=== PATIENT | male | born 1975 | race Caucasian/White ===

== ENCOUNTER 2024-06-04 17:25 | Inpatient (IN) | payer OTHER ==
[2024-06-04 18:59] VITALS: BMI 34.9
[2024-06-04] MEDS ORDERED: POLYETHYLENE GLYCOL (HEALTHYLAX) 3350 17 GM PACKET PO PRN (19:14)
[2024-06-04] MEDS ORDERED: guaiFENesin 600 MG TABLET.ER (FP) PO PRN (19:14)
[2024-06-04] MEDS ORDERED: BENZONATATE 200 MG CAPSULE PO PRN (19:14)
[2024-06-04] MEDS ORDERED: ACETAMINOPHEN 325 MG TABLET (FP) PO PRN (19:14)
[2024-06-04] MEDS ORDERED: MAG HYDROX/AL HYDROX/SIMETH 30 ML UNIT-DOSE CUP PO PRN (19:14)
[2024-06-04] MEDS ORDERED: BISMUTH SUBSALICYLATE 524 MG/30 ML PO PRN (19:14)
[2024-06-04] MEDS ORDERED: LOPERAMIDE HCL 2 MG CAPSULE PO PRN (19:14)
[2024-06-04] MEDS ORDERED: MAGNESIUM HYDROX 2400MG/30ML ORAL SUSPENSION 30 ML CUP PO PRN (19:14)
[2024-06-04] MEDS ORDERED: ONDANSETRON *ODT* 4 MG TABLET SL PRN (19:14)
[2024-06-04] MEDS ORDERED: DICYCLOMINE HCL 10 MG CAPSULE PO PRN (19:14)
[2024-06-04] MEDS ORDERED: P-EPHED 60MG/TRIPROLIDI 2.5MG TABLET PO PRN (19:14)
[2024-06-04] MEDS ORDERED: BENZOCAINE/MENTHOL (CHLORASEPTIC ) LOZENGE MM PRN (19:14)
[2024-06-04] MEDS ORDERED: METOPROLOL TARTRATE 25 MG TABLET (FP) ONE (20:20)
[2024-06-04] MEDS: METOPROLOL TARTRATE 25 MG TABLET (FP) PO ONE (20:22)
[2024-06-04] MEDS: MELATONIN 5 MG TABLETS PO SCH (22:02)
[2024-06-04] MEDS: THIAMINE 100 MG TABLET PO SCH (22:02)
[2024-06-04] MEDS: METHOCARBAMOL 500 MG TABLET PO PRN (22:05)
[2024-06-04] MEDS: hydrOXYzine PAMOATE 25 MG CAPSULE (FP) PO PRN (22:05)
[2024-06-05] MEDS: NALTREXONE HCL 50 MG TABLET PO ONE (10:31)
[2024-06-05] MEDS: chlordiazePOXIDE HCL 25 MG CAPSULE PO SCH (10:32)
[2024-06-05] MEDS: PRENATAL VITAMINS W/ FOLIC ACID TABLET (FP) PO SCH (10:32)
[2024-06-05] MEDS: PNEUMOC 20-VAL CONJ-DIP CRM/PF 0.5 ML SYRINGE IM ONE (11:00)
[2024-06-05 11:51] LABS: HEMATOCRIT 39.8 % (35.4-49); HEMOGLOBIN 13.8 GM/dL (11.7-16.9); MCH 35.5 pg (25.7-33.7); MCHC 34.7 g/dl (32.0-35.9); MEAN CELL VOLUME 102.2 fl (80-96); MEAN PLT VOLUME 9.5 fl (7.5-11.1); PLATELET COUNT 112 10^3/uL (134-434); RDW 14.3 % (11.9-15.9); WHITE BLOOD COUNT 8.9 K/mm3 (4.0-10.0)
[2024-06-05 14:02] LABS: CHLORIDE 103 mmol/L (98-107); POTASSIUM 3.8 mmol/L (3.5-5.1); SODIUM 136 mmol/L (136-145)
[2024-06-05 14:09] LABS: CALCIUM 8.6 mg/dL (8.5-10.1)
[2024-06-05 14:10] LABS: ALBUMIN 2.8 g/dl (3.4-5.0); BLOOD UREA NITROGEN 7.6 mg/dL (7-18); GLUCOSE,RANDOM 117 mg/dL (74-106)
[2024-06-05 14:13] LABS: CO2 29 mmol/L (21-32); SGOT/AST 124 U/L (15-37); SGPT/ALT 74 U/L (13-61)
[2024-06-05 14:15] LABS: BILIRUBIN,TOTAL 1.1 mg/dL (0.2-1)
[2024-06-05 14:16] LABS: ALK PHOS 119 U/L (45-117)
[2024-06-05 14:25] LABS: CREATININE 0.7 mg/dL (0.55-1.3)
[2024-06-05] MEDS ORDERED: NALTREXONE HCL 50 MG TABLET PO SCH (15:18)
[2024-06-06] MEDS: chlordiazePOXIDE HCL 25 MG CAPSULE PO PRN (02:46)
[2024-06-06] MEDS: IBUPROFEN 400 MG TABLET (FP) PO PRN (05:40)
[2024-06-06] MEDS ORDERED: NALTREXONE HCL 50 MG TABLET PO SCH (10:00)
[2024-06-06] MEDS: NALTREXONE HCL 50 MG TABLET PO SCH (10:57)
[2024-06-06] MEDS: LORazepam 1 MG TABLET PO PRN (17:46)
[2024-06-06] MEDS: IBUPROFEN 600 MG TABLET (FP) PO PRN (22:31)
[2024-06-06] MEDS: LORazepam 2 MG TABLET PO SCH (22:38)
[2024-06-06] MEDS ORDERED: LORazepam 2 MG TABLET PO SCH (23:00)
[2024-06-07] MEDS ORDERED: chlordiazePOXIDE HCL 25 MG CAPSULE PO SCH (05:00)
[2024-06-08] MEDS ORDERED: chlordiazePOXIDE HCL 10 MG CAPSULE PO PRN
[2024-06-08] MEDS ORDERED: chlordiazePOXIDE HCL 10 MG CAPSULE PO SCH (05:00)
[2024-06-08] MEDS: LORazepam 1 MG TABLET PO SCH (05:55)
[2024-06-08] MEDS ORDERED: LORazepam 0.5 MG TABLET ONE (05:59)
[2024-06-08] MEDS: NICOTINE POLACRILEX 2 MG LOZENGE BC PRN (17:20)
[2024-06-09] MEDS ORDERED: chlordiazePOXIDE HCL 10 MG CAPSULE PO SCH (05:00)
[2024-06-09] MEDS: LORazepam 0.5 MG TABLET PO SCH (05:34)
[2024-06-09] MEDS ORDERED: NICOTINE 21 MG/24 HOURS TOPICAL PATCH TD PRN (10:52)
[2024-06-09] MEDS: NICOTINE POLACRILEX 2 MG GUM BUC PRN (17:14)
[2024-06-10] MEDS ORDERED: chlordiazePOXIDE HCL 10 MG CAPSULE PO ONE (05:00)
[2024-06-10] MEDS: LORazepam 0.5 MG TABLET PO ONE (05:29)
[2024-06-10 10:09] VITALS: BP 133/83; PULSE 81; RESP 18; TEMP 97.8
== END 2024-06-10 11:53 | disposition other institution (70) | DRG 774 ==
LOC: YASAS 17:25 → Y6N 19:42
PROVIDERS: ADMIT Allergy & Immunology; ATTEND Surgery
PROC: HZ2ZZZZ Detoxification Services for Substance Abuse Treatment (ICD-10-PCS; principal; 2024-06-04)
DX: F10.230 Alcohol dependence with withdrawal, uncomplicated (principal); F14.20 Cocaine dependence, uncomplicated; F12.20 Cannabis dependence, uncomplicated; F17.210 Nicotine dependence, cigarettes, uncomplicated; F19.280 Other psychoactive substance dependence with psychoactive substance-induced anxiety disorder; F41.9 Anxiety disorder, unspecified; E11.9 Type 2 diabetes mellitus without complications; R74.01 Elevation of levels of liver transaminase levels; Z56.0 Unemployment, unspecified; Z59.00 Homelessness unspecified
CPT/HCPCS: 36415; 80053; 80305; 80307; 82962; 84450; 85027; 86780; 90677; 93005; 93010; G0009